=== PATIENT | male | born 1990 | race Caucasian/White ===

== ENCOUNTER 2016-12-21 02:24 | Emergency (ER) | payer SELFPAY ==
[~2016-12-21] VITALS: Ht 170.2 cm; Wt 81.2 kg
[~2016-12-21 02:24] MED LIST: DEPAKOTE ER500 MG PO; METHADONE HCL PO; METHADONE HCL40 MG PO; NOHOMEMEDS; ZOLOFT50 M1 PO
[2016-12-21 02:27] VITALS: BP 115/79
== END 2016-12-21 05:15 | disposition left against medical advice (07) ==
LOC: EME 02:24
DX: S69.91XA Unspecified injury of right wrist, hand and finger(s), initial encounter (principal); Z53.21 Procedure and treatment not carried out due to patient leaving prior to being seen by health care provider
CPT/HCPCS: 73130

== ENCOUNTER → 2017-05-07 | Outpatient (CLI) | payer OTHER | END | disposition home or self-care (01) | LOC: CDC 09:04 | DX: Z79.891 Long term (current) use of opiate analgesic (principal) | CPT/HCPCS: 93000 ==